=== PATIENT | female | born 1950 | race Caucasian/White ===

== ENCOUNTER 2020-07-20 09:48 | Outpatient (CLI) | payer OTHER ==
[~2020-07-20 09:48] MED LIST: AMBIEN10 MG PO; CIPRO500 MG PO; CLONAZEPAM0.5 MG PO; FLAGYL500MG PO; PAROXETINE HCL10 MG PO; PAXIL20 MG PO; PROTONIX40 MG PO; TRAZODONE HCL100 MG PO; [UNRECOGNIZED DRUG - OTHER]
== END 2020-07-20 10:01 | disposition home or self-care (01) ==
LOC: MAMO-SONO 09:48
PROVIDERS: ATTEND Internal Medicine
DX: R92.0 Mammographic microcalcification found on diagnostic imaging of breast (principal); Z12.31 Encounter for screening mammogram for malignant neoplasm of breast